=== PATIENT | male | born 1980 | race Caucasian/White ===

== ENCOUNTER 2017-01-19 00:28 | Emergency (ER) | payer MEDICAID ==
[2017-01-19 01:04] VITALS: BP 164/102
[2017-01-19] MEDS ORDERED: Bupivacaine 0.5%/EPINEPHrine 1:200,000 1.8 ML Cartridge INJECT ONE (01:18)
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
[2017-01-19] MEDS ORDERED: HYDROmorphone 1 MG/ML Syringe IM ONE (01:51)
== END 2017-01-19 02:07 | disposition home or self-care (01) ==
LOC: JP.ED 00:28
DX: S02.5XXB Fracture of tooth (traumatic), initial encounter for open fracture (principal); J45.909 Unspecified asthma, uncomplicated; F17.210 Nicotine dependence, cigarettes, uncomplicated; Z91.048 Other nonmedicinal substance allergy status; Z88.8 Allergy status to other drugs, medicaments and biological substances; V29.9XXA Motorcycle rider (driver) (passenger) injured in unspecified traffic accident, initial encounter
CPT/HCPCS: 64400; 96372; 99283; J1170

== ENCOUNTER 2017-02-24 01:27 | Emergency (ER) | payer MEDICAID ==
[2017-02-24] MEDS ORDERED: Bacitracin Oint 1 GM U/D Packet TOP ONE (02:43)
[2017-02-24 02:44] VITALS: BP 169/91
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
== END 2017-02-24 03:08 | disposition home or self-care (01) ==
LOC: JP.ED 01:27
DX: S61.021A Laceration with foreign body of right thumb without damage to nail, initial encounter (principal); J45.909 Unspecified asthma, uncomplicated; F31.9 Bipolar disorder, unspecified; Z79.899 Other long term (current) drug therapy; Z91.09 Other allergy status, other than to drugs and biological substances; X78.1XXA Intentional self-harm by knife, initial encounter
CPT/HCPCS: 12001; 99282-25; 99283-25

== ENCOUNTER 2017-06-18 13:12 | Inpatient (IN) | payer MEDICAID ==
[2017-06-18] MEDS ORDERED: Naloxone 0.4 MG/ML SDV IVPUSH ONE (13:29)
[2017-06-18] MEDS ORDERED: Sodium Chloride 0.9% 1,000 ML IV SCH ×3 (13:30→16:00)
[2017-06-18] MEDS ORDERED: Lactated Ringers 1,000 ML IV SCH (14:00)
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
--- NOTE | 2017-06-18 15:25 | PCM.HP ---
H&P History of Present Illness - General Date of Service: 06/18/17 Admit Problem/Dx: Admission Diagnosis/Problem Admission Diagnosis/Problem Drug overdose - suicide Source of Information: Provider, RN Notes Reviewed History Limitations: Reports: Altered Mental Status (Sedation secondary to drug overdose) - History of Present Illness Initial Comments - Free Text/Narative: Mr. Castillo is a 36-year-old gentleman who is admitted through the emergency department, for further monitoring following a polydrug overdose in an apparent suicide attempt. Patient is very sedated and unable to provide significant history concerning recent symptoms or events. Friends that brought him in reported that he has a history of depression and had been expressing suicidal thoughts over the past few weeks. This morning he apparently took an overdose of gabapentin, Xanax, and ibuprofen. Following this he went to work but was very sleepy and lethargic. He was working taking docks and lifts on [place] when he abruptly fell in. He went to sit in the truck to warm up and when his friends checked on him found him to be essentially unresponsive. He was brought into the emergency department and has for the most part been unresponsive since he's been here, he does open eyes to painful stimuli and has a Jarred Coma Score of 10. - Related Data Allergies/Adverse Reactions: Allergies Allergy/AdvReac Type Severity Reaction Status Date / Time eucalyptus Allergy Sneezing Verified 02/24/17 02:18 [place] Allergy Sneezing Uncoded 01/19/17 01:05 Home Medications: Home Meds Albuterol Sulfate [Proair Hfa] 8.5 gm IH QID PRN 10/10/14 [History] ALPRAZolam [Xanax] 1 mg PO ASDIRECTED 02/24/17 [History] Cyclobenzaprine [Flexeril] 10 mg PO ASDIRECTED 02/24/17 [History] Gabapentin [Gabapentin] 600 mg PO ASDIRECTED 02/24/17 [History] Mirtazapine [Mirtazapine] 30 mg PO ASDIRECTED 02/24/17 [History] Ibuprofen 1 tab PO Q8H PRN 06/18/17 [History] Past Medical History - Past Health History Medical/Surgical History: Denies Medical/Surgical History Respiratory History: Reports: Asthma Musculoskeletal History: Reports: Fracture, Other (See Below) Other Musculoskeletal History: collar bone Psychiatric History: Reports: Bipolar, Depression, Suicidal Ideation - Infectious Disease History Infectious Disease History: Reports: Chicken Pox Social & Family History - Tobacco Use Smoking Status *Q: Heavy Tobacco Smoker Years of Tobacco use: 24 Packs/Tins Daily: 1 Second Hand Smoke Exposure: Yes - Caffeine Use Caffeine Use: Reports: Coffee, Energy Drinks - Recreational Drug Use Recreational Drug Use: Yes Recreational Drug Type: Reports: Marijuana/Hashish Recreational Drug Use Frequency: Daily H&P Review of Systems - Review of Systems: Review Of Systems: Unable To Obtain General: Reports: ROS unobtainable (Secondary to sedation) Exam - Exam Exam: See Below - Vital Signs Vital Signs: Last Vital Signs Temp 97.3 F 06/18/17 13:15 Pulse 62 06/18/17 14:27 Resp 24 H 06/18/17 13:15 BP 117/72 06/18/17 14:27 Pulse Ox 94 L 06/18/17 14:27 Weight: 190 lb - Exam Quality Assessment: DVT Prophylaxis General: Sedated, Lethargic HEENT: Conjunctiva Clear, Mucosa Moist & [place], Normal Nasal Septum, Posterior Pharynx Clear, Pupils Equal Neck: Supple, Trachea Midline, +2 Carotid Pulse wo Bruit Lungs: Clear to Auscultation, Normal Respiratory Effort Cardiovascular: Regular Rate, Regular Rhythm, Normal S1, Normal S2. No: Systolic Murmur, Diastolic Murmur GI/Abdominal Exam: Normal Bowel Sounds, Soft, Non-Tender, No Distention Back Exam: Normal Inspection. No: Vertebral Tenderness Extremities: Non-Tender, No Pedal Edema Skin: Warm, Dry, Intact - Patient Data Lab Results Last 24 hrs: Laboratory Results - last 24 hr 06/18/17 06/18/17 06/18/17 Range/Units 13:20 13:28 15:03 WBC 7.6 (4.5-11.0) K/uL RBC 4.96 (4.30-5.90) M/uL Hgb 15.1 H (12.0-15.0) g/dL Hct 46.1 (40.0-54.0) % MCV 93 (80-98) fL MCH 30 (27-31) pg MCHC 33 (32-36) % Plt Count 204 (150-400) K/uL Neut % (Auto) 59 (36-66) % Lymph % (Auto) 29 (24-44) % [place] % (Auto) 9 H (2-6) % Eos % (Auto) 2 (2-4) % Baso % (Auto) 1 (0-1) % Sodium 143 (140-148) mmol/L Potassium 4.1 (3.6-5.2) mmol/L Chloride 107 (100-108) mmol/L Carbon Dioxide 30 (21-32) mmol/L Anion Gap 6.1 (5.0-14.0) mmol/L BUN 9 (7-18) mg/dL Creatinine 1.0 (0.8-1.3) mg/dL Est Cr Clr Drug Dosing 107.72 mL/min Estimated GFR (MDRD) > 60 (>60) Glucose 94 (74-106) mg/dL Calcium 9.5 (8.5-10.1) mg/dL Total Bilirubin 0.2 (0.2-1.0) mg/dL AST 17 (15-37) U/L ALT 29 (12-78) U/L Alkaline Phosphatase 124 H (46-116) U/L Total Protein 7.4 (6.4-8.2) g/dL Albumin 3.8 (3.4-5.0) g/dL Globulin 3.6 H (2.3-3.5) g/dL Albumin/Globulin Ratio 1.1 L (1.2-2.2) Urine Color Yellow Urine Appearance Clear Urine pH 6.5 (4.5-8.0) Ur Specific [place] 1.010 (1.008-1.030) Urine Protein Negative (NEGATIVE) mg/dL Urine Glucose (UA) Normal (NEGATIVE) mg/dL Urine Ketones Negative (NEGATIVE) mg/dL Urine Occult Blood Negative (NEGATIVE) Urine Nitrite Negative (NEGAITVE) Urine Bilirubin Negative (NEGATIVE) Urine Urobilinogen Normal (NORMAL) mg/dL Ur Leukocyte Esterase Negative (NEGATIVE) Urine RBC Not seen (0-5) Urine WBC Not seen (0-5) Ur Epithelial Cells Rare Amorphous Sediment Not seen Urine Bacteria Rare Urine Mucus Not seen Urine Opiates Screen (NEGATIVE) Ur Oxycodone Screen (NEGATIVE) Urine Methadone Screen (NEGATIVE) Ur Propoxyphene Screen (NEGATIVE) Ur Barbiturates Screen (NEGATIVE) Ur Tricyclics Screen (NEGATIVE) Ur Phencyclidine Scrn (NEGATIVE) Ur Amphetamine Screen (NEGATIVE) U Methamphetamines Scrn (NEGATIVE) Urine MDMA Screen (NEGATIVE) U Benzodiazepines Scrn (NEGATIVE) U Cocaine Metab Screen (NEGATIVE) U Marijuana (THC) Screen (NEGATIVE) 06/18/17 Range/Units 15:03 WBC (4.5-11.0) K/uL RBC (4.30-5.90) M/uL Hgb (12.0-15.0) g/dL Hct (40.0-54.0) % MCV (80-98) fL MCH (27-31) pg MCHC (32-36) % Plt Count (150-400) K/uL Neut % (Auto) (36-66) % Lymph % (Auto) (24-44) % [place] % (Auto) (2-6) % Eos % (Auto) (2-4) % Baso % (Auto) (0-1) % Sodium (140-148) mmol/L Potassium (3.6-5.2) mmol/L Chloride (100-108) mmol/L Carbon Dioxide (21-32) mmol/L Anion Gap (5.0-14.0) mmol/L BUN (7-18) mg/dL Creatinine (0.8-1.3) mg/dL Est Cr Clr Drug Dosing mL/min Estimated GFR (MDRD) (>60) Glucose (74-106) mg/dL Calcium (8.5-10.1) mg/dL Total Bilirubin (0.2-1.0) mg/dL AST (15-37) U/L ALT (12-78) U/L Alkaline Phosphatase (46-116) U/L Total Protein (6.4-8.2) g/dL Albumin (3.4-5.0) g/dL Globulin (2.3-3.5) g/dL Albumin/Globulin Ratio (1.2-2.2) Urine Color Urine Appearance Urine pH (4.5-8.0) Ur Specific [place] (1.008-1.030) Urine Protein (NEGATIVE) mg/dL Urine Glucose (UA) (NEGATIVE) mg/dL Urine Ketones (NEGATIVE) mg/dL Urine Occult Blood (NEGATIVE) Urine Nitrite (NEGAITVE) Urine Bilirubin (NEGATIVE) Urine Urobilinogen (NORMAL) mg/dL Ur Leukocyte Esterase (NEGATIVE) Urine RBC (0-5) Urine WBC (0-5) Ur Epithelial Cells Amorphous Sediment Urine Bacteria Urine Mucus Urine Opiates Screen Negative (NEGATIVE) Ur Oxycodone Screen Negative (NEGATIVE) Urine Methadone Screen Negative (NEGATIVE) Ur Propoxyphene Screen Negative (NEGATIVE) Ur Barbiturates Screen Negative (NEGATIVE) Ur Tricyclics Screen Positive H (NEGATIVE) Ur Phencyclidine Scrn Negative (NEGATIVE) Ur Amphetamine Screen Negative (NEGATIVE) U Methamphetamines Scrn Negative (NEGATIVE) Urine MDMA Screen Negative (NEGATIVE) U Benzodiazepines Scrn Positive H (NEGATIVE) U Cocaine Metab Screen Negative (NEGATIVE) U Marijuana (THC) Screen Positive H (NEGATIVE) Result Diagrams: 06/18/17 13:28 06/18/17 13:20 *Q Meaningful Use (ADM) - VTE *Q VTE Criteria *Q: - VTE Risk Assess *Q Each Risk Factor Represents 1 Point: None Total Score 1 Point Risk Factors: 0 Each Risk Factor Represents 2 Points: None Total Score 2 Point Risk Factors: 0 Each Risk Factor Represents 3 Points: None Total Score 3 Point Risk Factors: 0 Each Risk Factor Represents 5 Points: None Total Score 5 Point Risk Factors: 0 Venous Thromboembolism Risk Factor Score *Q: 0 - Stroke *Q Stroke Criteria *Q: - AMI *Q AMI Criteria *Q: Problem List Initiated/Reviewed/Updated: Yes Orders Last 24hrs: Active Orders 24 hr Category Date Time Status Patient Status Manage Transfer [TRANSFER] Routine ADT 06/18/17 15:11 Ordered Lactated Ringers [Ringers, Lactated] 1,000 ml Med 06/18/17 14:00 Active IV ASDIRECTED Sodium Chloride 0.9% [Normal Saline] 1,000 ml Med 06/18/17 13:30 Active IV ASDIRECTED Resuscitation Status Routine Resus Stat 06/18/17 15:13 Ordered Medication Orders Sodium Chloride (Normal Saline) 1,000 mls @ 999 mls/hr IV ASDIRECTED [facility] Last Admin: 06/18/17 14:53 Dose: 999 mls/hr Lactated Ringer's (Ringers, Lactated) 1,000 mls @ 999 mls/hr IV ASDIRECTED [facility] Last Admin: 06/18/17 13:25 Dose: 999 mls/hr Assessment/Plan Comment:: ASSESSMENT AND PLAN DRUG OVERDOSE IN AN APPARENT SUICIDE ATTEMPT-patient is unable to provide meaningful history because of overdose and associated decreased level of consciousness. Jarred Coma Scale is 10. History of overdose with gabapentin, Xanax, and ibuprofen. Poison control is been contacted and recommend supportive care. -IV fluids for hydration -Monitor in ICU -Suicide precautions -Follow-up BMP in a.m. -Transfer to inpatient psych facility when medically stable MAINTENANCE ISSUES -DVT prophylaxis; not required -GI prophylaxis; not indicated -Stauffer catheter; not indicated -Nutrition; regular diet -Nicotine dependence; not required CODE STATUS-FULL CODE ADMISSION STATUS-patient will be admitted to inpatient status, expect at least a 2 night hospital stay for evaluation and management of problems as outlined above. At the time of this admission I do not reasonably expected evaluation and management of this problem will require more than a 96 hour hospital stay. DISPOSITION-anticipate discharge to inpatient psychiatric facility when medically stable PRIMARY CARE PROVIDER-
[2017-06-18] MEDS ORDERED: Albuterol 0.083% 2.5 MG/3 ML Neb Soln NEB PRN (16:00)
[2017-06-18] MEDS ORDERED: Ondansetron 4 MG/2 ML SDV IV PRN (16:00)
[2017-06-18] MEDS ORDERED: Sodium Chloride 0.9% 10 ML Syringe FLUSH PRN (16:00)
[2017-06-18] MEDS ORDERED: Acetaminophen 325 MG Tab PO PRN (16:00)
[2017-06-18] MEDS ORDERED: diphenhydrAMINE 50 MG/ML SDV IVPUSH ONE (19:00)
[2017-06-18] MEDS ORDERED: LORazepam 2 MG/ML MDV IM ONE (19:00)
[2017-06-18] MEDS ORDERED: Haloperidol Lactate 5 MG/ML SDV IM ONE (19:00)
[2017-06-18] MEDS ORDERED: Haloperidol Lactate 5 MG/ML SDV ONE (19:05)
[2017-06-18] MEDS ORDERED: diphenhydrAMINE 50 MG/ML SDV ONE (19:06)
[2017-06-18] MEDS ORDERED: LORazepam 2 MG/ML MDV ONE (19:09)
[2017-06-18] MEDS ORDERED: ALPRAZolam 0.5 MG Tab ONE (19:42)
[2017-06-18] MEDS ORDERED: Nicotine Polacrilex 2 MG Gum ONE (19:44)
[2017-06-18] MEDS ORDERED: Nicotine 21 MG/24 Hr Patch ONE (19:47)
[2017-06-18] MEDS ORDERED: Nicotine 21 MG/24 Hr Patch TRDERM ONE (19:47)
[2017-06-18] MEDS ORDERED: Nicotine Polacrilex 2 MG Gum CHEW PRN (20:07)
[2017-06-18] MEDS ORDERED: ALPRAZolam 0.25 MG Tab PO ONE (20:07)
[2017-06-18] MEDS ORDERED: ALPRAZolam 0.5 MG Tab PO PRN (20:09)
[2017-06-18 20:27] VITALS: BP 161/49
[2017-06-18] MEDS ORDERED: Cyclobenzaprine 10 MG Tab PO PRN (20:40)
[2017-06-18] MEDS ORDERED: Gabapentin 300 MG Cap PO SCH (21:30)
--- NOTE | 2017-06-18 22:56 | PCM.DCSUM1 ---
Discharge Summary - Discharge Data Discharge Date: 06/18/17 Discharge Disposition: Home, Self-Care 01 Condition: Fair - Discharge Diagnosis/Problem(s) (1) Drug overdose, multiple drugs SNOMED Code(s): 30118117 ICD Code: T50.901A - POISONING BY UNSP DRUG/MEDS/BIOL SUBST, ACCIDENTAL, INIT Status: Acute Current Visit: Yes - Patient Instructions Diet: Usual Diet as Tolerated Activity: As Tolerated Other/Special Instructions: FU primary care provider and mental health provider as soon as possible. - Discharge Plan Home Medications: Home Meds Albuterol Sulfate [Proair Hfa] 8.5 gm IH QID PRN 10/10/14 [History] ALPRAZolam [Xanax] 1 mg PO ASDIRECTED 02/24/17 [History] Cyclobenzaprine [Flexeril] 10 mg PO ASDIRECTED 02/24/17 [History] Gabapentin 600 mg PO ASDIRECTED 02/24/17 [History] Mirtazapine 30 mg PO ASDIRECTED 02/24/17 [History] Ibuprofen 1 tab PO Q8H PRN 06/18/17 [History] Forms: ED Department Discharge Referrals: PCP,None [Primary Care Provider] - - Patient Data Vitals - Most Recent: Last Vital Signs Temp 99.7 F 06/18/17 20:00 Pulse 91 06/18/17 20:00 Resp 20 06/18/17 20:00 BP 161/49 H 06/18/17 20:00 Pulse Ox 94 L 06/18/17 20:00 Weight - Most Recent: 512 lb 9.196 oz I&O - Last 24 hours: Intake & Output 06/18/17 06/18/17 06/18/17 06:59 14:59 22:59 Intake Total 311 Balance 311 Lab Results - Last 24 hrs: Laboratory Results - last 24 hr 06/18/17 Range/Units 15:40 Acetaminophen 0.0 L (10.0-30.0) ug/mL Med Orders - Current: Current Medications Acetaminophen (Tylenol) 650 mg PO Q4H PRN PRN Reason: Pain (Mild 1-3)/fever Albuterol (Proventil Neb Soln) 2.5 mg NEB Q4H PRN PRN Reason: Shortness Of Breath/wheezing Alprazolam (Xanax) 2 mg PO Q2H PRN PRN Reason: Anxiety Last Admin: 06/18/17 19:43 Dose: 2 mg Cyclobenzaprine HCl (Flexeril) 10 mg PO Q6H PRN PRN Reason: Muscle Spasm Last Admin: 06/18/17 21:17 Dose: 10 mg Gabapentin (Neurontin) 300 mg PO TID [facility] Sodium Chloride (Normal Saline) 1,000 mls @ 125 mls/hr IV ASDIRECTED [facility] Last Admin: 06/18/17 17:55 Dose: 125 mls/hr Nicotine Polacrilex (Nicorelief) 4 mg CHEW Q1H PRN PRN Reason: Other Last Admin: 06/18/17 19:45 Dose: 4 mg Ondansetron HCl (Zofran) 4 mg IV Q4H PRN PRN Reason: Nausea/Vomiting Sodium Chloride (Saline Flush) 10 ml FLUSH ASDIRECTED PRN PRN Reason: Keep Vein Open Discontinued Medications Alprazolam (Xanax) Confirm Administered Dose 2 mg .ROUTE .ST-MED ONE Stop: 06/18/17 19:43 Last Admin: 06/18/17 20:17 Dose: Not Given Alprazolam (Xanax) 2 mg PO ONETIME ONE Stop: 06/18/17 20:08 Last Admin: 06/18/17 20:18 Dose: Not Given Diphenhydramine HCl (Benadryl) Confirm Administered Dose 50 mg .ROUTE .STK-MED ONE Stop: 06/18/17 19:07 Last Admin: 06/18/17 20:14 Dose: Not Given Diphenhydramine HCl (Benadryl) 50 mg IVPUSH ONETIME ONE Stop: 06/18/17 19:01 Last Admin: 06/18/17 20:16 Dose: Not Given Haloperidol Lactate (Haldol) Confirm Administered Dose 5 mg .ROUTE .STK-MED ONE Stop: 06/18/17 19:06 Last Admin: 06/18/17 20:14 Dose: Not Given Haloperidol Lactate (Haldol) 5 mg IM ONETIME ONE Stop: 06/18/17 19:01 Last Admin: 06/18/17 20:16 Dose: Not Given Sodium Chloride (Normal Saline) 1,000 mls @ 999 mls/hr IV ASDIRECTED [facility] Last Admin: 06/18/17 14:53 Dose: 999 mls/hr Sodium Chloride (Normal Saline) 1,000 mls @ 999 mls/hr IV ASDIRECTED [facility] Lactated Ringer's (Ringers, Lactated) 1,000 mls @ 999 mls/hr IV ASDIRECTED [facility] Last Admin: 06/18/17 13:25 Dose: 999 mls/hr Lorazepam (Ativan) Confirm Administered Dose 2 mg .ROUTE .STK-MED ONE Stop: 06/18/17 19:10 Last Admin: 06/18/17 20:14 Dose: Not Given Lorazepam (Ativan) 2 mg IM ONETIME ONE Stop: 06/18/17 19:01 Last Admin: 06/18/17 20:16 Dose: Not Given Naloxone HCl (Narcan) 0.4 mg IVPUSH ONETIME ONE Stop: 06/18/17 13:30 Last Admin: 06/18/17 13:44 Dose: 0.4 mg Nicotine (Habitrol) Confirm Administered Dose 21 mg .ROUTE .STK-MED ONE Stop: 06/18/17 19:48 Last Admin: 06/18/17 20:19 Dose: Not Given Nicotine (Habitrol) 21 mg TRDERM ONETIME ONE Stop: 06/18/17 19:48 Last Admin: 06/18/17 19:47 Dose: 21 mg Nicotine Polacrilex (Nicorelief) Confirm Administered Dose 4 mg .ROUTE .STK-MED ONE Stop: 06/18/17 19:45 Last Admin: 06/18/17 20:19 Dose: Not Given *Q Meaningful Use (DIS) - VTE *Q VTE Criteria *Q: - Stroke *Q Stroke Criteria *Q: - AMI *Q AMI Criteria *Q:
--- NOTE | 2017-06-19 08:41 | PCM.DCSUM1 ---
Discharge Summary - Hospital Course Brief History: This patient is a 36-year-old gentleman who was admitted through the emergency department with a polydrug overdose and apparent suicide attempt. - Discharge Data Discharge Date: 06/18/17 Discharge Disposition: Home, Self-Care 01 Condition: Fair - Discharge Diagnosis/Problem(s) (1) Drug overdose, multiple drugs SNOMED Code(s): 25814777 ICD Code: T50.901A - POISONING BY UNSP DRUG/MEDS/BIOL SUBST, ACCIDENTAL, INIT Status: Acute - Patient Summary/Data Hospital Course: Mr. Wheeler is a 36-year-old gentleman who was brought into the emergency department because of unresponsiveness. He had apparently taken several extra of his medications on the morning of admission. He was at work, taking docks and lifts on of the [place] when he was noted to stumble and fell into the [place]rett. He went up to one of the vehicles to warm up and when his coworkers checked on him he was unresponsive. He was then brought into the emergency department for further evaluation. Was estimated that he taken several extra of his gabapentin as well as Xanax and ibuprofen. Poison control was contacted and recommended that he be monitored and treated with supportive care. He was admitted to the intensive care unit on a 72 hour hold because of suspected suicide attempt. When he awoke, he became extremely agitated and demanded that he be allowed to leave the facility. It was explained to him that he was on hold because of concern for suicide attempt. He was extremely threatening, aggressive, and verbally abusive. Law-enforcement was called and remained present until the patient was discharged. Crisis team was able to come and see him in the evening and felt that he was not a suicide risk. 72 hour hold was removed and he was discharged home. Follow-up will be scheduled with his primary care provider as well as mental health provider. - Patient Instructions Diet: Usual Diet as Tolerated Activity: As Tolerated Other/Special Instructions: FU primary care provider and mental health provider as soon as possible. - Discharge Plan Home Medications: Home Meds Albuterol Sulfate [Proair Hfa] 8.5 gm IH QID PRN 10/10/14 [History] ALPRAZolam [Xanax] 1 mg PO ASDIRECTED 02/24/17 [History] Cyclobenzaprine [Flexeril] 10 mg PO ASDIRECTED 02/24/17 [History] Gabapentin 600 mg PO ASDIRECTED 02/24/17 [History] Mirtazapine 30 mg PO ASDIRECTED 02/24/17 [History] Ibuprofen 1 tab PO Q8H PRN 06/18/17 [History] Patient Handouts: Drug Overdose Referrals: PCP,None [Primary Care Provider] - - Patient Data Vitals - Most Recent: Last Vital Signs Temp 99.7 F 06/18/17 20:00 Pulse 91 06/18/17 20:00 Resp 20 06/18/17 20:00 BP 161/49 H 06/18/17 20:00 Pulse Ox 94 L 06/18/17 20:00 Weight - Most Recent: 512 lb 9.196 oz I&O - Last 24 hours: Intake & Output 06/18/17 06/19/17 06/19/17 22:59 06:59 14:59 Intake Total 311 Balance 311 Lab Results - Last 24 hrs: Laboratory Results - last 24 hr 06/18/17 Range/Units 15:40 Acetaminophen 0.0 L (10.0-30.0) ug/mL Med Orders - Current: Current Medications Discontinued Medications Acetaminophen (Tylenol) 650 mg PO Q4H PRN PRN Reason: Pain (Mild 1-3)/fever Albuterol (Proventil Neb Soln) 2.5 mg NEB Q4H PRN PRN Reason: Shortness Of Breath/wheezing Alprazolam (Xanax) Confirm Administered Dose 2 mg .ROUTE .STK-MED ONE Stop: 06/18/17 19:43 Last Admin: 06/18/17 20:17 Dose: Not Given Alprazolam (Xanax) 2 mg PO ONETIME ONE Stop: 06/18/17 20:08 Last Admin: 06/18/17 20:18 Dose: Not Given Alprazolam (Xanax) 2 mg PO Q2H PRN PRN Reason: Anxiety Last Admin: 06/18/17 19:43 Dose: 2 mg Cyclobenzaprine HCl (Flexeril) 10 mg PO Q6H PRN PRN Reason: Muscle Spasm Last Admin: 06/18/17 21:17 Dose: 10 mg Diphenhydramine HCl (Benadryl) Confirm Administered Dose 50 mg .ROUTE .STK-MED ONE Stop: 06/18/17 19:07 Last Admin: 06/18/17 20:14 Dose: Not Given Diphenhydramine HCl (Benadryl) 50 mg IVPUSH ONETIME ONE Stop: 06/18/17 19:01 Last Admin: 06/18/17 20:16 Dose: Not Given Gabapentin (Neurontin) 300 mg PO TID [facility] Last Admin: 06/18/17 23:13 Dose: Not Given Haloperidol Lactate (Haldol) Confirm Administered Dose 5 mg .ROUTE .STK-MED ONE Stop: 06/18/17 19:06 Last Admin: 06/18/17 20:14 Dose: Not Given Haloperidol Lactate (Haldol) 5 mg IM ONETIME ONE Stop: 06/18/17 19:01 Last Admin: 06/18/17 20:16 Dose: Not Given Sodium Chloride (Normal Saline) 1,000 mls @ 999 mls/hr IV ASDIRECTED [facility] Last Admin: 06/18/17 14:53 Dose: 999 mls/hr Sodium Chloride (Normal Saline) 1,000 mls @ 999 mls/hr IV ASDIRECTED [facility] Lactated Ringer's (Ringers, Lactated) 1,000 mls @ 999 mls/hr IV ASDIRECTED [facility] Last Admin: 06/18/17 13:25 Dose: 999 mls/hr Sodium Chloride (Normal Saline) 1,000 mls @ 125 mls/hr IV ASDIRECTED [facility] Last Admin: 06/18/17 17:55 Dose: 125 mls/hr Lorazepam (Ativan) Confirm Administered Dose 2 mg .ROUTE .STK-MED ONE Stop: 06/18/17 19:10 Last Admin: 06/18/17 20:14 Dose: Not Given Lorazepam (Ativan) 2 mg IM ONETIME ONE Stop: 06/18/17 19:01 Last Admin: 06/18/17 20:16 Dose: Not Given Naloxone HCl (Narcan) 0.4 mg IVPUSH ONETIME ONE Stop: 06/18/17 13:30 Last Admin: 06/18/17 13:44 Dose: 0.4 mg Nicotine (Habitrol) Confirm Administered Dose 21 mg .ROUTE .STK-MED ONE Stop: 06/18/17 19:48 Last Admin: 06/18/17 20:19 Dose: Not Given Nicotine (Habitrol) 21 mg TRDERM ONETIME ONE Stop: 06/18/17 19:48 Last Admin: 06/18/17 19:47 Dose: 21 mg Nicotine Polacrilex (Nicorelief) Confirm Administered Dose 4 mg .ROUTE .STK-MED ONE Stop: 06/18/17 19:45 Last Admin: 06/18/17 20:19 Dose: Not Given Nicotine Polacrilex (Nicorelief) 4 mg CHEW Q1H PRN PRN Reason: Other Last Admin: 06/18/17 19:45 Dose: 4 mg Ondansetron HCl (Zofran) 4 mg IV Q4H PRN PRN Reason: Nausea/Vomiting Sodium Chloride (Saline Flush) 10 ml FLUSH ASDIRECTED PRN PRN Reason: Keep Vein Open *Q Meaningful Use (DIS) - VTE *Q VTE Criteria *Q: - Stroke *Q Stroke Criteria *Q: - AMI *Q AMI Criteria *Q:
== END 2017-06-18 23:13 | disposition home or self-care (01) | DRG 918 ==
LOC: JP.ED 13:12 → JP.ICU 15:11
PROVIDERS: ADMIT Hospitalist; ATTEND Hospitalist
DX: T42.4X2A Poisoning by benzodiazepines, intentional self-harm, initial encounter (principal); T42.6X2A Poisoning by other antiepileptic and sedative-hypnotic drugs, intentional self-harm, initial encounter; T39.312A Poisoning by propionic acid derivatives, intentional self-harm, initial encounter; R53.83 Other fatigue; R40.2423 Glasgow coma scale score 9-12, at hospital admission; F17.210 Nicotine dependence, cigarettes, uncomplicated; J45.909 Unspecified asthma, uncomplicated; F31.9 Bipolar disorder, unspecified; F12.90 Cannabis use, unspecified, uncomplicated; F19.90 Other psychoactive substance use, unspecified, uncomplicated; Z91.048 Other nonmedicinal substance allergy status
CPT/HCPCS: 36415; 80053; 80305; 81001; 82962; 85025; 96361; 96374; 99285-25; A9270-GY; G0480; J2310; J7040; J7120

== ENCOUNTER 2020-04-03 17:02 | Emergency (ER) | payer SELFPAY ==
[2020-04-03] MEDS ORDERED: Bacitracin Oint 1 GM U/D Packet TOP ONE (17:25)
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
[2020-04-03 17:52] VITALS: BP 138/81; PULSE 98
== END 2020-04-03 18:10 | disposition other institution (70) ==
LOC: JP.ED 17:02
DX: S80.11XA Contusion of right lower leg, initial encounter (principal); S50.311A Abrasion of right elbow, initial encounter; S00.81XA Abrasion of other part of head, initial encounter; F10.929 Alcohol use, unspecified with intoxication, unspecified; J45.909 Unspecified asthma, uncomplicated; F31.9 Bipolar disorder, unspecified; Z91.018 Allergy to other foods; W01.0XXA Fall on same level from slipping, tripping and stumbling without subsequent striking against object, initial encounter
CPT/HCPCS: 99282; 99284

== ENCOUNTER 2022-12-25 18:49 | Emergency (ER) | payer MEDICAID ==
[2022-12-25 19:39] VITALS: BP 110/66; PULSE 98
== END 2022-12-25 19:36 | disposition home or self-care (01) ==
LOC: JP.ED 18:49
DX: J44.1 Chronic obstructive pulmonary disease with (acute) exacerbation (principal); Z72.0 Tobacco use; Z91.048 Other nonmedicinal substance allergy status
CPT/HCPCS: 99284

== ENCOUNTER 2024-10-27 15:08 | Emergency (ER) | payer MEDICAID ==
[2024-10-27 15:21] LABS: BASOPHILS ABSOLUTE AUTO 0.04 K/uL (0.00-0.10); BASOPHILS PERCENT AUTO 0.4 % (0.1-1.3); EOSINOPHILS ABSOLUTE AUTO 0.16 K/uL (0.00-0.40); EOSINOPHILS PERCENT AUTO 1.6 % (0.0-5.4); HEMATOCRIT 39.5 % (38.4-49.7); HEMOGLOBIN 13.2 g/dL (12.9-16.9); IMMATURE GRAN ABSOLUTE AUTO 0.03 K/uL (0.00-0.23); IMMATURE GRAN PERCENT AUTO 0.3 % (0.0-0.7); LYMPHOCYTES PERCENT AUTO 16.1 % (11.4-47.7); MEAN CORPUSCULAR HEMOGLOBIN 30.5 pg (31.6-35.5); MEAN CORPUSCULAR HGB CONC 33.4 g/dL (31.6-35.5); MEAN CORPUSCULAR VOLUME 91.2 fL (81.4-99.0); MONOCYTES PERCENT AUTO 7.1 % (3.3-12.6); NEUTROPHILS ABSOLUTE AUTO 7.38 K/uL (1.0-7.6); NEUTROPHILS PERCENT AUTO 74.5 % (40.0-78.1); PLATELET COUNT,PLT 208 K/uL (130-375); RED BLOOD CELL COUNT 4.33 M/uL (4.14-5.76); WHITE BLOOD CELL COUNT,WBC 9.9 K/uL (3.2-11.0)
[2024-10-27 15:38] LABS: ANION GAP 10.9 mmol/L (5.0-14.0); BLOOD UREA NITROGEN,BUN 13 mg/dL (7-18); C-REACTIVE PROTEIN < 0.50 mg/dL (<0.50); CALCIUM 9.3 mg/dL (8.5-10.1); CARBON DIOXIDE,CO2 26 mmol/L (21-32); CHLORIDE,CL 104 mmol/L (100-108); CREATININE 0.9 mg/dL (0.8-1.3); ESTIMATED GFR 108 mL/min (>60); GLUCOSE RANDOM 113 mg/dL (74-106); POTASSIUM,K 3.9 mmol/L (3.6-5.2); SODIUM,NA 137 mmol/L (140-148)
[2024-10-27 16:10] LABS: AMPHETAMINES SCREEN, URINE PRESUMPTIVE POSITIVE (NEGATIVE); BARBITURATE SCREEN,URINE NEGATIVE (NEGATIVE); BENZODIAZEPINES SCREEN,URINE NEGATIVE (NEGATIVE); METHADONE SCREEN, URINE NEGATIVE (NEGATIVE); METHAMPHETAMINES SCREEN, URINE PRESUMPTIVE POSITIVE (NEGATIVE); OXYCODONE SCREEN,URINE NEGATIVE (NEGATIVE); PROPOXYPHENE SCREEN,URINE NEGATIVE (NEGATIVE); THC SCREEN,URINE 50 NG/ML PRESUMPTIVE POSITIVE (NEGATIVE)
== END 2024-10-27 16:50 | disposition home or self-care (01) ==
LOC: JP.ED 15:08
DX: S00.03XA Contusion of scalp, initial encounter (principal); F15.10 Other stimulant abuse, uncomplicated; J44.89 Other specified chronic obstructive pulmonary disease; Z88.8 Allergy status to other drugs, medicaments and biological substances; Z79.899 Other long term (current) drug therapy; W19.XXXA Unspecified fall, initial encounter
CPT/HCPCS: 36415; 70450; 70486; 72125; 76377; 80048; 80305-QW; 80307; 85025; 86140; 99284